=== PATIENT | male | born 1980 | race Caucasian/White ===

== ENCOUNTER 2018-06-08 23:06 | Emergency (ER) | payer BC, OTHER ==
[~2018-06-08] VITALS: Ht 177.8 cm; Wt 88.6 kg
[2018-06-08 23:13] VITALS: Ht 177.8 cm; Wt 88.6 kg
[2018-06-08] MEDS ORDERED: SOD CHLORIDE 0.9% 1,000 ML IV STA (23:27)
[2018-06-08] MEDS ORDERED: ACETAMINOPHEN 500 MG TAB PO ONE (23:30)
[2018-06-08] MEDS ORDERED: KETOROLAC 15 MG INJ IV ONE (23:30)
[2018-06-08] MEDS ORDERED: DIPHENHYDRAMINE 50 MG INJ IM ONE (23:30)
[2018-06-08] MEDS ORDERED: LORAZEPAM 2 MG INJ IM ONE (23:30)
[2018-06-08] MEDS ORDERED: HALOPERIDOL 5 MG INJ IM ONE (23:30)
[2018-06-09] MEDS ORDERED: LORAZEPAM 2 MG INJ IV ONE (00:30)
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
[2018-06-09] MEDS ORDERED: FUROSEMIDE 40 MG INJ IV STA (04:44)
[2018-06-09] MEDS ORDERED: CA CHLORIDE 10% 10 ML SYRINGE IV STA (04:44)
[2018-06-09] MEDS ORDERED: NA BICARBONATE 8.4% 50 ML SYG IV STA (04:44)
[2018-06-09] MEDS ORDERED: INSULIN REGULAR, HUMAN 100 UNIT/1 ML 3ML VIAL IVP STA (04:44)
[2018-06-09] MEDS ORDERED: ALBUTEROL 0.5% (NEB) 2.5 MG/0.5 ML AMP INH STA (04:44)
[2018-06-09] MEDS ORDERED: DEXTROSE 50% 50 ML SYRINGE IV PRN (05:00)
[2018-06-09 05:03] VITALS: BP 124/60; PULSE 90; RESP 16
[2018-06-09] MEDS ORDERED: IBUP-1542 PO (05:30)
== END 2018-06-09 05:42 | disposition home or self-care (01) ==
LOC: E/R 23:06
DX: F19.959 Other psychoactive substance use, unspecified with psychoactive substance-induced psychotic disorder, unspecified (principal); S01.81XA Laceration without foreign body of other part of head, initial encounter; S01.01XA Laceration without foreign body of scalp, initial encounter; S80.211A Abrasion, right knee, initial encounter; S29.001A Unspecified injury of muscle and tendon of front wall of thorax, initial encounter; F12.10 Cannabis abuse, uncomplicated; D72.829 Elevated white blood cell count, unspecified; F10.10 Alcohol abuse, uncomplicated; R40.2142 Coma scale, eyes open, spontaneous, at arrival to emergency department; R40.2362 Coma scale, best motor response, obeys commands, at arrival to emergency department; R40.2252 Coma scale, best verbal response, oriented, at arrival to emergency department; R07.9 Chest pain, unspecified; R07.81 Pleurodynia; W22.8XXA Striking against or struck by other objects, initial encounter; Y92.810 Car as the place of occurrence of the external cause; Z87.891 Personal history of nicotine dependence
CPT/HCPCS: 12001; 12011; 70450; 70486; 71045; 80048; 80076; 80307; 81001; 85025; 93005; 94644; 96372; 96374; 99285; J1200; J1630; J1885; J2060; J7030